=== PATIENT | female | born 1975 | race Caucasian/White ===

== ENCOUNTER → 2016-12-07 | Outpatient (CLI) | payer OTHER ==
[2016-12-07 20:15] LABS: ALT 25 U/L (9-52); AST 17 U/L (14-36); Alkaline Phosphatase 75 U/L (38-126); Anion Gap 11 mmol/L; Basophils # (A) 0.1 k/uL (0-0.2); Basophils % (A) 1 %; Blood Urea Nitrogen 13 mg/dL (7-17); CH 28.3; CHCM 31.5; Calcium 10.1 mg/dL (8.4-10.2); Carbon Dioxide 24 mmol/L (22-30); Chloride 106 mmol/L (98-107); Cholesterol 188 mg/dL (<200); Eosinophils # (A) 0.1 k/uL (0-0.7); Eosinophils % (A) 1 %; Glucose 104 mg/dL (74-99); HCT 40.9 % (34.0-46.0); HDL Cholesterol 48 mg/dL (40-60); HDW 2.63; Hypochromasia Slight; Luc # (Auto) 0.08; Luc % (Auto) 1; Lymphocytes # (A) 1.5 k/uL (1.0-4.8); Lymphocytes % (A) 25 %; MCH 28.8 pg (25.0-35.0); MCHC 31.9 g/dL (31.0-37.0); MCV 90.3 fL (80.0-100.0); Mean Platelet Volume 8.4; Monocytes # (A) 0.3 k/uL (0-1.0); Monocytes % (A) 5 %; Neutrophils # (A) 3.9 k/uL (1.3-7.7); Neutrophils % (A) 67 %; Non-African American GFR(MDRD) >60 (>60 ml/min/1.73 sqM); Potassium 4.7 mmol/L (3.5-5.1); RBC 4.52 m/uL (3.80-5.40); RDW 13.9 % (11.5-15.5); Sodium 141 mmol/L (137-145); Total Bilirubin 0.5 mg/dL (0.2-1.3); Triglycerides 240 mg/dL (<150); WBC 5.9 k/uL (3.8-10.6); WBC (Perox) 5.97
== END ==
LOC: MMGSC 11:32
PROVIDERS: ATTEND Family Medicine
DX: M79.89 Other specified soft tissue disorders (principal)
CPT/HCPCS: 36415; 80053; 80061; 83880; 84439; 84443; 85025

== ENCOUNTER 2016-12-14 11:59 | Emergency (ER) | payer OTHER ==
[2016-12-14 12:13] VITALS: RESP 18; TEMP 98.1
--- NOTE | 2016-12-14 13:46 | XR ---
EXAMINATION TYPE: XR chest 2V DATE OF EXAM: 12/14/2016 1:40 PM COMPARISON: NONE HISTORY: Back pain TECHNIQUE: Frontal and lateral views of the chest are obtained. FINDINGS: Heart and mediastinum are normal. Lungs are clear. Diaphragm is normal. Bony thorax is int act. IMPRESSION: Normal chest
--- NOTE | 2016-12-14 13:47 | XR ---
EXAMINATION TYPE: XR lumbosacral spine min 4V DATE OF EXAM: 12/14/2016 1:40 PM COMPARISON: NONE HISTORY: Back pain TECHNIQUE: 5 views FINDINGS: Vertebra have normal alignment. There is narrowing at L5-S1 disc space with spurring. There is no compression fracture. Posterior elements are intact. Sacroiliac joints are normal. IMPRESSION: Mild spondylosis at L5-S1. No fracture.
--- NOTE | 2016-12-14 14:23 | ED ---
General Adult HPI - General Chief complaint: Back Pain/Injury Stated complaint: Back/Leg Pain Right Sided Time Seen by Provider: 12/14/16 12:38 Source: patient Mode of arrival: ambulatory Limitations: no limitations - Related Data Home Medications Medication Instructions Recorded Confirmed Ibuprofen [Motrin] 400 mg PO Q6HR PRN 12/14/16 12/14/16 Loratadine [Claritin] 10 mg PO DAILY PRN 12/14/16 12/14/16 Omeprazole [PriLOSEC] 20 - 40 mg PO DAILY 12/14/16 12/14/16 Previous Rx's Medication Instructions Recorded Ibuprofen 600 mg PO Q6H #18 tablet 12/14/16 methylPREDNISolone Dose Pack 4 mg PO DIRECTED #21 package 12/14/16 [Medrol Dose Pack] Allergies Allergy/AdvReac Type Severity Reaction Status Date / Time No Known Allergies Allergy Verified 12/14/16 13:19 Review of Systems ROS Statement: Those systems with pertinent positive or pertinent negative responses have been documented in the HPI. ROS Other: All systems not noted in ROS Statement are negative. Past Medical History Past Medical History: GERD/Reflux History of Any Multi-Drug Resistant Organisms: None Reported Past Surgical History: Section Past Psychological History: Depression Smoking Status: Never smoker Past Alcohol Use History: None Reported Past Drug Use History: None Reported General Exam Limitations: no limitations Course Vital Signs 12/14/16 12:08 Temperature 98.1 F Pulse Rate 76 Respiratory 18 Rate Blood Pressure 168/83 O2 Sat by Pulse 100 Oximetry Medical Decision Making - Medical Decision Making Medical decision making chest x-ray is done and reviewed by radiologist his impression is frontal lateral views of the chest are obtained. Heart and mediastinum are normal. Lungs are clear. Diaphragm is normal. Bony thorax is intact. Impression; normal chest. As read by Dr. Munoz X-rays lumbosacral spine were done and reviewed by radiologist his impression is vertebra have normal alignment. There is narrowing at L5-S1 disc space whispering. There is no compression fracture. Posterior elements are intact. Sacroiliac joints are normal. Impression; mild spondylosis at L5-S1. No fracture. As read by Dr. Munoz Ultrasound of the right lower extremity was done. Reviewed by radiologist and his final impression is no evidence of DVT is visualized, technical limitations due to the patient's body habitus impression; grayscale, color Doppler, spectral Doppler imaging performed of the deep veins of the lower extremities. There is normal flow, compressibility, vascular waveforms bilaterally. No evidence of DVT in the right leg. As read by Dr. Munoz We did discuss the possibility of right lumbar radiculopathy. The plan at this time is for the patient to be placed on a Medrol Dosepak, and ibuprofen 6R milligrams every 6 hours. He'll be recommended patient follow-up with family physician and she may need an MRI for evaluation at this time. - Lab Data Lab Results 12/14/16 Range/Units 13:25 NT-Pro-B Natriuret Pep 302 pg/mL Disposition Clinical Impression: Lumbar radiculopathy, acute Disposition: HOME SELF-CARE Condition: Fair Instructions: Acute Low Back Pain (ED), Lumbar Radiculopathy (ED) Additional Instructions: Medications that include a Medrol Dosepak and ibuprofen as directed keep legs elevated. Suggested that to have an MRI of the lumbar spine as an outpatient. Prescriptions: Ibuprofen 600 mg PO Q6H #18 tablet methylPREDNISolone Dose Pack [Medrol Dose Pack] 4 mg PO DIRECTED #21 package Referrals: Kaity Segura MD [Primary Care Provider] - 1-2 days Time of Disposition: 14:44
--- NOTE | 2016-12-14 14:34 | US ---
EXAMINATION TYPE: US venous doppler duplex LE RT DATE OF EXAM: 12/14/2016 2:10 PM COMPARISON: NONE CLINICAL HISTORY: Pain. Pain/edema right leg SIDE PERFORMED: Right TECHNIQUE: The lower extremity deep venous system is examined utilizing real time linear array sonog odin with graded compression, doppler sonography and color-flow sonography. VESSELS IMAGED: External Iliac Vein (EIV) Common Femoral Vein Deep Femoral Vein Greater Saphenous Vein * Femoral Vein Popliteal Vein Small Saphenous Vein * Proximal Calf Veins (* superficial vessels) Right Leg: NO evidence of DVT as visualized, technical limitations due to patient's body habitus IMPRESSION: Grayscale, color doppler, spectral doppler imaging performed of the deep veins of the lo wer extremities. There is normal flow, compressibility, vascular waveforms bilaterally. No evidence of deep venous thrombosis in the right leg.
[2016-12-14 14:58] VITALS: BP 159/92; PULSE 88
== END 2016-12-14 14:58 | disposition home or self-care (01) ==
LOC: EC 11:59
DX: M54.16 Radiculopathy, lumbar region (principal); K21.9 Gastro-esophageal reflux disease without esophagitis; Z79.899 Other long term (current) drug therapy
CPT/HCPCS: 36415; 71020; 72110; 83880; 99284

== ENCOUNTER → 2017-03-10 | Outpatient (CLI) | payer OTHER ==
[2017-03-10 18:55] LABS: Basophils % (A) 1 %; CH 28.4; CHCM 32.6; Eosinophils # (A) 0.1 k/uL (0-0.7); Eosinophils % (A) 2 %; HCT 39.6 % (34.0-46.0); HDW 2.62; HGB 13.3 gm/dL (11.4-16.0); Luc # (Auto) 0.11; Luc % (Auto) 2; Lymphocytes # (A) 1.7 k/uL (1.0-4.8); Lymphocytes % (A) 26 %; MCH 29.3 pg (25.0-35.0); MCHC 33.6 g/dL (31.0-37.0); MCV 87.4 fL (80.0-100.0); Mean Platelet Volume 7.9; Monocytes # (A) 0.3 k/uL (0-1.0); Monocytes % (A) 5 %; Neutrophils # (A) 4.2 k/uL (1.3-7.7); Neutrophils % (A) 65 %; RBC 4.53 m/uL (3.80-5.40); RDW 14.2 % (11.5-15.5); WBC 6.5 k/uL (3.8-10.6); WBC (Perox) 6.86
[2017-03-10 19:06] LABS: ALT 35 U/L (9-52); AST 20 U/L (14-36); Alkaline Phosphatase 87 U/L (38-126); Anion Gap 9 mmol/L; Blood Urea Nitrogen 12 mg/dL (7-17); Carbon Dioxide 25 mmol/L (22-30); Chloride 105 mmol/L (98-107); Glucose 93 mg/dL (74-99); Non-African American GFR(MDRD) >60 (>60 ml/min/1.73 sqM); Potassium 4.6 mmol/L (3.5-5.1); Sodium 139 mmol/L (137-145); Total Bilirubin 0.5 mg/dL (0.2-1.3)
== END | disposition home or self-care (01) ==
LOC: MMGSC 15:04
PROVIDERS: ATTEND Family Medicine
DX: R68.83 Chills (without fever) (principal); R42 Dizziness and giddiness
CPT/HCPCS: 36415; 80053; 84443; 85025

== ENCOUNTER 2017-03-15 14:13 | Emergency (ER) | payer OTHER ==
[2017-03-15] MEDS ORDERED: SODIUM CHLORIDE 0.9% 1,000 ML IV STA ×2 (14:42)
--- NOTE | 2017-03-15 14:45 | ED ---
General Adult HPI - General Chief complaint: Arrhythmia/Palpitations Stated complaint: Heart Palputations Time Seen by Provider: 03/15/17 14:20 Source: patient, family, RN notes reviewed, old records reviewed Mode of arrival: wheelchair Limitations: no limitations - History of Present Illness Initial comments: This is a 41-year-old female ER for evaluation. This patient presents for evaluation regarding palpitations, palpitations and vertigo. Multiple different complaints. Patient states she hasn't felt good since Wednesday and symptoms have been episodic but persistent, not worse or better. No modifying factors for symptoms. The room does spin around with head movements. The patient also complains her heart rate seems to be spitting up slowing down skipping a beat, 7 stable at work. Denies shortness of breath fevers no change in medications - Related Data Home Medications Medication Instructions Recorded Confirmed Omeprazole [PriLOSEC] 20 mg PO DAILY 12/14/16 03/15/17 Meclizine HCl 25 mg PO DAILY PRN 03/15/17 03/15/17 Allergies Allergy/AdvReac Type Severity Reaction Status Date / Time No Known Allergies Allergy Verified 03/15/17 15:11 Review of Systems ROS Statement: Those systems with pertinent positive or pertinent negative responses have been documented in the HPI. ROS Other: All systems not noted in ROS Statement are negative. Past Medical History Past Medical History: GERD/Reflux History of Any Multi-Drug Resistant Organisms: None Reported Past Surgical History: Section Past Psychological History: Depression Smoking Status: Never smoker Past Alcohol Use History: None Reported Past Drug Use History: None Reported General Exam Limitations: no limitations General appearance: alert, in no apparent distress Head exam: Present: atraumatic, normocephalic, normal inspection Eye exam: Present: normal appearance, PERRL, EOMI. Absent: scleral icterus, conjunctival injection, periorbital swelling ENT exam: Present: normal exam, mucous membranes moist Neck exam: Present: normal inspection. Absent: tenderness, meningismus, lymphadenopathy Respiratory exam: Present: normal lung sounds bilaterally. Absent: respiratory distress, wheezes, rales, rhonchi, stridor Cardiovascular Exam: Present: regular rate, normal rhythm, normal heart sounds. Absent: systolic murmur, diastolic murmur, rubs, gallop, clicks GI/Abdominal exam: Present: soft, normal bowel sounds. Absent: distended, tenderness, guarding, rebound, rigid Extremities exam: Present: normal inspection, full ROM, normal capillary refill. Absent: tenderness, pedal edema, joint swelling, calf tenderness Back exam: Present: normal inspection Neurological exam: Present: alert, oriented X3, CN II-XII intact Psychiatric exam: Present: normal affect, normal mood Skin exam: Present: warm, dry, intact, normal color. Absent: rash Course Vital Signs 03/15/17 14:32 Temperature 96.9 F L Pulse Rate 74 Respiratory 18 Rate Blood Pressure 157/83 O2 Sat by Pulse 100 Oximetry - Reevaluation(s) Reevaluation #1: 03/15/17 16:15 The patient still feels similar to before EKG Findings - EKG Comments: EKG Findings:: EKG shows normal sinus a rate of 81, CA 166, QRS 78, QTC 466 Medical Decision Making - Medical Decision Making 41 female to the ER earlier with multiple nonspecific complaints, overt vertigo , not feeling well, palpitations. Lab work Normal EKG normal patient will be discharged home - Lab Data Result diagrams: 03/15/17 15:00 03/15/17 15:00 Lab Results 03/15/17 03/15/17 03/15/17 Range/Units 15:00 15:00 15:00 WBC 7.2 (3.8-10.6) k/uL RBC 4.61 (3.80-5.40) m/uL Hgb 13.1 (11.4-16.0) gm/dL Hct 40.3 (34.0-46.0) % MCV 87.4 (80.0-100.0) fL MCH 28.4 (25.0-35.0) pg MCHC 32.5 (31.0-37.0) g/dL RDW 14.6 (11.5-15.5) % Plt Count 279 (150-450) k/uL Neutrophils % 60 % Lymphocytes % 29 % Monocytes % 5 % Eosinophils % 2 % Basophils % 1 % Neutrophils # 4.4 (1.3-7.7) k/uL Lymphocytes # 2.1 (1.0-4.8) k/uL Monocytes # 0.4 (0-1.0) k/uL Eosinophils # 0.1 (0-0.7) k/uL Basophils # 0.1 (0-0.2) k/uL PT (9.0-12.0) sec INR (<1.2) APTT (22.0-30.0) sec Sodium 140 (137-145) mmol/L Potassium 4.7 (3.5-5.1) mmol/L Chloride 105 (98-107) mmol/L Carbon Dioxide 24 (22-30) mmol/L Anion Gap 11 mmol/L BUN 14 (7-17) mg/dL Creatinine 0.80 (0.52-1.04) mg/dL Est GFR (MDRD) Af Amer >60 (>60 ml/min/1.73 sqM) Est GFR (MDRD) Non-Af >60 (>60 ml/min/1.73 sqM) Glucose 97 (74-99) mg/dL Calcium 10.1 (8.4-10.2) mg/dL Phosphorus 3.8 (2.5-4.5) mg/dL Magnesium 1.8 (1.6-2.3) mg/dL Total Bilirubin 0.6 (0.2-1.3) mg/dL AST 22 (14-36) U/L ALT 38 (9-52) U/L Alkaline Phosphatase 99 (38-126) U/L Total Creatine Kinase 47 (30-135) U/L CK-MB (CK-2) 0.4 (0.0-2.4) ng/mL CK-MB (CK-2) Rel Index 0.9 Troponin I <0.012 (0.000-0.034) ng/mL Total Protein 7.3 (6.3-8.2) g/dL Albumin 4.5 (3.5-5.0) g/dL TSH 2.520 (0.465-4.680) mIU/L Urine Color Urine Appearance (Clear) Urine pH (5.0-8.0) Ur Specific [place] (1.001-1.035) Urine Protein (Negative) Urine Glucose (UA) (Negative) Urine Ketones (Negative) Urine Blood (Negative) Urine Nitrite (Negative) Urine Bilirubin (Negative) Urine Urobilinogen (<2.0) mg/dL Ur Leukocyte Esterase (Negative) 03/15/17 03/15/17 Range/Units 15:00 15:35 WBC (3.8-10.6) k/uL RBC (3.80-5.40) m/uL Hgb (11.4-16.0) gm/dL Hct (34.0-46.0) % MCV (80.0-100.0) fL MCH (25.0-35.0) pg MCHC (31.0-37.0) g/dL RDW (11.5-15.5) % Plt Count (150-450) k/uL Neutrophils % % Lymphocytes % % Monocytes % % Eosinophils % % Basophils % % Neutrophils # (1.3-7.7) k/uL Lymphocytes # (1.0-4.8) k/uL Monocytes # (0-1.0) k/uL Eosinophils # (0-0.7) k/uL Basophils # (0-0.2) k/uL PT 10.8 (9.0-12.0) sec INR 1.1 (<1.2) APTT 25.1 (22.0-30.0) sec Sodium (137-145) mmol/L Potassium (3.5-5.1) mmol/L Chloride (98-107) mmol/L Carbon Dioxide (22-30) mmol/L Anion Gap mmol/L BUN (7-17) mg/dL Creatinine (0.52-1.04) mg/dL Est GFR (MDRD) Af Amer (>60 ml/min/1.73 sqM) Est GFR (MDRD) Non-Af (>60 ml/min/1.73 sqM) Glucose (74-99) mg/dL Calcium (8.4-10.2) mg/dL Phosphorus (2.5-4.5) mg/dL Magnesium (1.6-2.3) mg/dL Total Bilirubin (0.2-1.3) mg/dL AST (14-36) U/L ALT (9-52) U/L Alkaline Phosphatase (38-126) U/L Total Creatine Kinase (30-135) U/L CK-MB (CK-2) (0.0-2.4) ng/mL CK-MB (CK-2) Rel Index Troponin I (0.000-0.034) ng/mL Total Protein (6.3-8.2) g/dL Albumin (3.5-5.0) g/dL TSH (0.465-4.680) mIU/L Urine Color Light Yellow Urine Appearance Clear (Clear) Urine pH 5.0 (5.0-8.0) Ur Specific [place] 1.008 (1.001-1.035) Urine Protein Negative (Negative) Urine Glucose (UA) Negative (Negative) Urine Ketones Negative (Negative) Urine Blood Negative (Negative) Urine Nitrite Negative (Negative) Urine Bilirubin Negative (Negative) Urine Urobilinogen <2.0 (<2.0) mg/dL Ur Leukocyte Esterase Negative (Negative) - Radiology Data Radiology results: report reviewed (C chest x-ray is negative for acute disease) , image reviewed Disposition Clinical Impression: Vertigo, Anxiety, Palpitations Disposition: HOME SELF-CARE Condition: Good Instructions: Palpitations (ED), Vertigo (ED) Referrals: Kaity Segura MD [Primary Care Provider] - 1-2 days
[2017-03-15 15:18] LABS: Basophils # (A) 0.1 k/uL (0-0.2); Basophils % (A) 1 %; CH 29.5; CHCM 33.9; Eosinophils # (A) 0.1 k/uL (0-0.7); Eosinophils % (A) 2 %; HCT 40.3 % (34.0-46.0); HDW 2.61; HGB 13.1 gm/dL (11.4-16.0); Luc % (Auto) 3; Lymphocytes # (A) 2.1 k/uL (1.0-4.8); Lymphocytes % (A) 29 %; MCH 28.4 pg (25.0-35.0); MCHC 32.5 g/dL (31.0-37.0); MCV 87.4 fL (80.0-100.0); Monocytes # (A) 0.4 k/uL (0-1.0); Monocytes % (A) 5 %; Neutrophils # (A) 4.4 k/uL (1.3-7.7); Neutrophils % (A) 60 %; RBC 4.61 m/uL (3.80-5.40); RDW 14.6 % (11.5-15.5); WBC 7.2 k/uL (3.8-10.6)
--- NOTE | 2017-03-15 15:20 | XR ---
EXAMINATION TYPE: XR chest 2V DATE OF EXAM: 03/15/2017 COMPARISON: 12/14/2016 HISTORY: Chest pain and palpitations TECHNIQUE: Frontal and lateral views of the chest are obtained. FINDINGS: There is no focal air space opacity, pleural effusion, or pneumothorax seen. The cardiac silhouette size is within normal limits. The osseous structures are intact. Minimal degenerative ch anges of the thoracic spine are noted. IMPRESSION: No acute cardiopulmonary process, unchanged from the prior.
[2017-03-15 15:27] LABS: INR 1.1 (<1.2); Partial Thromboplastin Time 25.1 sec (22.0-30.0); Prothrombin Time 10.8 sec (9.0-12.0)
[2017-03-15 15:31] LABS: ALT 38 U/L (9-52); AST 22 U/L (14-36); Alkaline Phosphatase 99 U/L (38-126); Anion Gap 11 mmol/L; Blood Urea Nitrogen 14 mg/dL (7-17); Calcium 10.1 mg/dL (8.4-10.2); Carbon Dioxide 24 mmol/L (22-30); Chloride 105 mmol/L (98-107); Glucose 97 mg/dL (74-99); Magnesium 1.8 mg/dL (1.6-2.3); Non-African American GFR(MDRD) >60 (>60 ml/min/1.73 sqM); Phosphorous 3.8 mg/dL (2.5-4.5); Potassium 4.7 mmol/L (3.5-5.1); Sodium 140 mmol/L (137-145); Total Bilirubin 0.6 mg/dL (0.2-1.3); Total Protein 7.3 g/dL (6.3-8.2)
[2017-03-15 15:44] LABS: Creatine Kinase 47 U/L (30-135)
[2017-03-15 15:51] LABS: Appearance,Urine Clear (Clear); Bilirubin,Urine Negative (Negative); Glucose,Urine (UA) Negative (Negative); Ketones,Urine Negative (Negative); Leukocyte Esterase,Urine Negative (Negative); Nitrite,Urine Negative (Negative); Protein,Urine Negative (Negative); Specific Gravity,Urine 1.008 (1.001-1.035); UA Billing (MACRO vs. MICRO) CHEM; Urobilinogen,Urine <2.0 mg/dL (<2.0)
[2017-03-15 15:57] LABS: Creatine Kinase MB 0.4 ng/mL (0.0-2.4); Troponin I <0.012 ng/mL (0.000-0.034)
[2017-03-15 16:27] VITALS: PULSE 80
[2017-03-15 17:08] VITALS: BP 119/64; RESP 17; TEMP 97.7
== END 2017-03-15 17:05 | disposition home or self-care (01) ==
LOC: EC 14:13
DX: R00.2 Palpitations (principal); R42 Dizziness and giddiness; F41.9 Anxiety disorder, unspecified; K21.9 Gastro-esophageal reflux disease without esophagitis
CPT/HCPCS: 36415; 71020; 80053; 81003; 82550; 82553; 83735; 84100; 84443; 84484; 85025; 85610; 85730; 87086; 93005; 96360; 96361; 99285

== ENCOUNTER → 2017-07-13 | Outpatient (CLI) | payer OTHER ==
--- NOTE | 2017-07-13 09:08 | MR ---
EXAMINATION TYPE: MR brain wo con DATE OF EXAM: 07/13/2017 COMPARISON: NONE HISTORY: Hearing loss and memory loss. TECHNIQUE: Multiplanar, multisequence images of the brain and brainstem is performed without intravenous contras t. FINDINGS: Diffusion weighted images demonstrate no evidence of a recent infarct or other diffusion ab normality. There is no extra-axial fluid collection. Three punctate foci of T2/FLAIR hyperintensity are seen within the right temporal lobe measuring 4 mm on axial FLAIR fat-sat image 16, periventricul ar white matter of the right hemisphere on image 20 measuring 3 mm, and mary radiata of the left he misphere on image 21 measuring 2 mm. The ventricular system and cisternal spaces are normal in size a nd appearance. The brain volume is age appropriate. Midline structures demonstrate normal morphology. The craniocervical junction appears within normal limits. There is a 1.0 cm right maxillary nondependent mucosal retention cyst and minimal ethmoidal m ucosal thickening. The remaining visualized sinuses are clear and the globes are intact. IMPRESSION: 1. No evidence of acute intracranial hemorrhage, acute infarct midline shift or mass effect. 2. Few foci of nonspecific white matter change. This are most commonly on the basis of microangiopath y although they can be seen in vasculitides, demyelinating disease, or migraines. 3. Mild ethmoid paranasal sinus disease and 1 cm right maxillary mucosal retention cyst.
== END | disposition home or self-care (01) ==
LOC: RADMRIMAIN 07:08
PROVIDERS: ATTEND Family Medicine
DX: I73.9 Peripheral vascular disease, unspecified (principal); R90.82 White matter disease, unspecified; H91.93 Unspecified hearing loss, bilateral
CPT/HCPCS: 70551

== ENCOUNTER → 2018-02-16 | Outpatient (CLI) | payer OTHER ==
--- NOTE | 2018-02-16 12:09 | US ---
EXAMINATION TYPE: US abdomen complete DATE OF EXAM: 02/16/2018 COMPARISON: NONE CLINICAL HISTORY: R10.11 Abd pain. Right abdominal pain, diarrhea per patient EXAM MEASUREMENTS: Liver Length: 12.6 cm Gallbladder Wall: 0.2 cm CBD: 0.2 cm Spleen: 9.8 cm Right Kidney: 10.1 x 5.0 x 4.1 cm Left Kidney: 10.5 x 5.8 x 4.7 cm Pancreas: Unremarkable Liver: wnl Gallbladder: wnl Evidence for sonographic Randolph's sign: no CBD: wnl Spleen: wnl Right Kidney: No hydronephrosis or masses seen Left Kidney: No hydronephrosis or masses seen Upper IVC: wnl Abd Aorta: wnl IMPRESSION: No sonographic evidence of cholelithiasis or acute cholecystitis. Unremarkable abdominal ultrasound.
--- NOTE | 2018-02-16 15:32 | MM ---
Reason for exam: clinical finding. Baseline mammogram. History: Took hormonal contraceptives beginning at age 23. Physical Findings: Nurse did not find any significant physical abnormalities on exam. MG Diagnostic Mammo w CAD AUREA Bilateral CC and MLO view(s) were taken. The breast tissue is heterogeneously dense. This may lower the sensitivity of mammography. No suspicious abnormality. No significant new findings when compared with previous films. These results were verbally communicated with the patient and result sheet given to the patient on 02/16/18. ASSESSMENT: Negative, BI-RAD 1 RECOMMENDATION: Routine screening mammogram of both breasts in 1 year.
--- NOTE | 2018-02-16 15:35 | USB ---
Reason for exam: clinical finding. History: Took hormonal contraceptives beginning at age 23. US Breast RT Right complete breast ultrasound includes all four quadrants, the retroareolar region and axilla. Finding demonstrates no cystic or solid lesion seen. Multiple morphologically normal lymph nodes however there is a solitary hyperechoic and minimally enlarged lymph node in the righty axilla, likely inflammatory. Follow up ultrasound after treatment recommended to ensure decrease in size. These results were verbally communicated with the patient and result sheet given to the patient on 02/16/18. ASSESSMENT: Probably benign, BI-RAD 3 RECOMMENDATION: Ultrasound of the right breast in 1 month. (axilla, 3-6 weeks after treatment)
== END | disposition home or self-care (01) ==
LOC: RADMAMWWP 08:48
PROVIDERS: ATTEND Family Medicine
DX: N64.4 Mastodynia (principal); R10.11 Right upper quadrant pain
CPT/HCPCS: 76700; 77066

== ENCOUNTER → 2018-03-22 | Outpatient (CLI) | payer OTHER ==
--- NOTE | 2018-03-22 15:01 | US ---
EXAMINATION TYPE: US axilla RT DATE OF EXAM: 03/22/2018 COMPARISON: Breast US 02/16/2018 CLINICAL HISTORY: R59.0 LOCALIZED ENLARGED LYMPH NODES. Followup right axillary nodes after antibioti cs. There is a 1.5 x 0.7 x 1.6 cm right axillary lymph node present. A larger 2.7 x 1.0 x 2.0 cm lymph no de is in the right axillary region. Additional smaller lymph nodes are present. Morphology appears si milar to previous exam. Echogenicity is more normal appearance on the current exam and less hyperecho ic nodules as previous. Multiple right axillary nodes seen mid medial axilla and medial axilla with largest measured #2 = 2.7 x 2.0 x 1.0cm. IMPRESSION: 1. Persistent right axillary adenopathy.
== END | disposition home or self-care (01) ==
LOC: RADUSWWP 14:06
PROVIDERS: ATTEND Family Medicine
DX: R59.0 Localized enlarged lymph nodes (principal)

== ENCOUNTER → 2019-03-28 | Outpatient (CLI) | payer OTHER ==
--- NOTE | 2019-03-28 10:35 | NM ---
EXAMINATION TYPE: NM stress cardiolite complete DATE OF EXAM: 03/28/2019 COMPARISON: NONE HISTORY: Family history of heart attack in mom with chest pain and palpitations. TECHNIQUE: After the intravenous administration of 10.44 mCi Tc 99m Sestamibi - Rest images obtained 50 minutes post injection. The patient exercised using a INGRID protocol and 1 minute prior to peak exercise was injected with 27 mCi Tc 99m Sestamibi - Stress images obtained 30 minutes post injectio n. FINDINGS: Targeted heart rate was achieved during performance of the study. Review of stress and rest SPECT saleem ges demonstrates no distinct perfusion abnormality. Gated analysis shows normal wall motion with an estimated left ventricular ejection fraction of 71 %. IMPRESSION: No scintigraphic evidence for reversible ischemia
--- NOTE | 2019-03-28 12:20 | EST ---
EXERCISE STRESS AGE: 43 SEX: F HT: 5'4" WT: 245 PROTOCOL: Cardiolite [employer] Stress Test STAGE: 3 DURATION OF EXERCISE: 7:15 HEART RATE REST: 77 BLOOD PRESSURE REST: 121/87 MAXIMUM HEART RATE ACHIEVED: 160 MAXIMUM BLOOD PRESSURE: 156/90 85% MPHR: 152 100% MPHR: 179 METS: 8.7 INDICATIONS: Chest pain. CLINICAL INFORMATION: STRESS DATA: Heart rate 77, pressure is 121/87 mmHg. Baseline EKG showed sinus mechanism. The patient exercised on the treadmill according to [employer] protocol for a total of 7 minutes and 15 seconds and achieved 8.7 METS. Max heart rate was 160, which is about 89% of maximum predicted heart rate. Maximum blood pressure was 156/90 mmHg. Clinically, the patient did not have any symptoms and the EKG did not show any significant ST or T-wave abnormalities concerning for ischemia. CONCLUSION: 1. Good exercise tolerance. 2. Normal EKG in response to exercise. 3. Please follow up on the Cardiolite portion on separate report from Radiology Department. MMODL / IJN: [id number] /
== END | disposition home or self-care (01) ==
LOC: RADNMMAIN 07:40
PROVIDERS: ATTEND Family Medicine
DX: R07.9 Chest pain, unspecified (principal)
CPT/HCPCS: 93017; 78452; A9500

== ENCOUNTER → 2019-07-24 | Outpatient (CLI) | payer OTHER ==
--- NOTE | 2019-07-24 10:48 | USB ---
Reason for exam: clinical finding. History: Took hormonal contraceptives beginning at age 23. Physical Findings: Nurse Summary: Patient complains of left breast lump, pain x 1 month, 1cm lump left breast 1 o'clock (nurse kacey). US Breast LT Technologist: Symone Hua Left complete breast ultrasound includes all four quadrants, the retroareolar region and axilla. Finding demonstrates a 1.4 x 1.3 x 0.7cm oval, lesion at 12:30 BB, possible lipoma versus fibroglandular tissue. These results were verbally communicated with the patient and result sheet given to the patient on 07/24/19. ASSESSMENT: Benign, BI-RAD 2 RECOMMENDATION: Routine screening mammogram of both breasts. Patient was due for annual screening mammogram in February 2019.
== END | disposition home or self-care (01) ==
LOC: RADUSWWP 08:45
PROVIDERS: ATTEND Family Medicine
DX: N64.4 Mastodynia (principal)

== ENCOUNTER 2021-08-06 12:35 | Emergency (ER) | payer OTHER ==
[2021-08-06 12:43] VITALS: RESP 18
[2021-08-06] MEDS ORDERED: SODIUM CHLORIDE 0.9% 1,000 ML IV STA (14:05)
[2021-08-06 14:42] LABS: Basophils % (A) 0 %; Eosinophils # (A) 0.1 k/uL (0-0.7); Eosinophils % (A) 1 %; HCT 41.9 % (34.0-46.0); HGB 13.7 gm/dL (11.4-16.0); Lymphocytes # (A) 1.2 k/uL (1.0-4.8); Lymphocytes % (A) 14 %; MCH 28.9 pg (25.0-35.0); MCHC 32.7 g/dL (31.0-37.0); MCV 88.3 fL (80.0-100.0); Mean Platelet Volume 8.1; Monocytes # (A) 0.4 k/uL (0-1.0); Monocytes % (A) 4 %; Neutrophils % (A) 80 %; Platelet Count 306 k/uL (150-450); RBC 4.74 m/uL (3.80-5.40); RDW 13.4 % (11.5-15.5); WBC 8.7 k/uL (3.8-10.6)
[2021-08-06 14:51] LABS: Partial Thromboplastin Time 23.9 sec (22.0-30.0); Prothrombin Time 10.3 sec (9.0-12.0)
[2021-08-06 14:52] LABS: ALT 20 U/L (4-34); AST 19 U/L (14-36); African American GFR (CKD) >90 (>60 ml/min/1.73 sqM); Albumin 4.5 g/dL (3.5-5.0); Alkaline Phosphatase 97 U/L (38-126); Anion Gap 12 mmol/L; Blood Urea Nitrogen 11 mg/dL (7-17); Calcium 10.2 mg/dL (8.4-10.2); Carbon Dioxide 23 mmol/L (22-30); Chloride 105 mmol/L (98-107); Glucose 107 mg/dL (74-99); Non-African American GFR(CKD) 89 (>60 ml/min/1.73 sqM); Potassium 4.3 mmol/L (3.5-5.1); Sodium 140 mmol/L (137-145); Total Bilirubin 0.6 mg/dL (0.2-1.3); Total Protein 7.5 g/dL (6.3-8.2)
--- NOTE | 2021-08-06 15:12 | XR ---
EXAMINATION TYPE: XR chest 2V DATE OF EXAM: 08/06/2021 COMPARISON: Chest x-ray 03/15/2017 HISTORY: Syncope, Covid positive TECHNIQUE: Frontal and lateral views of the chest are obtained. FINDINGS: Lung volumes are low. There is no focal air space opacity, pleural effusion, or pneumothora x seen. The cardiac silhouette size is within normal limits. The osseous structures are intact, th ere is thoracic spondylosis. IMPRESSION: No acute cardiopulmonary process.
--- NOTE | 2021-08-06 16:31 | ED ---
General Adult HPI - General Chief complaint: Upper Respiratory Infection Stated complaint: Covid+, elevated HR Time Seen by Provider: 08/06/21 13:06 Source: patient Mode of arrival: ambulatory Limitations: no limitations - History of Present Illness Initial comments: 46-year-old female with past history of prediabetes who presents to the emergency department with presyncope. Reports that she tested positive for Covid 3 days ago on a home test. She has had some nasal congestion for the past 2 weeks. Reports that today she had more fatigue and upon standing felt like she was going to pass out. Denies any chest pain or shortness of breath. Does admit to significant nasal congestion. She has been able to eat and drink without difficulty. No diarrhea. Denies any abdominal pain. No concern for . No history of heart problems pulmonary issues. Denies sensation of being off balance or vertiginous symptoms. No other alleviating, precipitating or modifying factors - Related Data Home Medications Medication Instructions Recorded Confirmed metFORMIN HCL [Glucophage] 500 mg PO BID 08/06/21 08/06/21 Previous Rx's Medication Instructions Recorded Meclizine [Antivert] 25 mg PO TID PRN #20 tab 08/06/21 Allergies Allergy/AdvReac Type Severity Reaction Status Date / Time No Known Allergies Allergy Verified 08/06/21 13:45 Review of Systems ROS Statement: Those systems with pertinent positive or pertinent negative responses have been documented in the HPI. ROS Other: All systems not noted in ROS Statement are negative. Past Medical History Past Medical History: GERD/Reflux Additional Past Medical History / Comment(s): covid + Aug 03 2021 History of Any Multi-Drug Resistant Organisms: None Reported Past Surgical History: Section Past Psychological History: Depression Smoking Status: Never smoker Past Alcohol Use History: None Reported Past Drug Use History: None Reported General Exam Limitations: no limitations General appearance: alert, in no apparent distress Head exam: Present: atraumatic, normocephalic, normal inspection Eye exam: Present: normal appearance, PERRL, EOMI. Absent: scleral icterus, co njunctival injection, periorbital swelling ENT exam: Present: normal exam, mucous membranes moist Neck exam: Present: normal inspection. Absent: tenderness, meningismus, lymphadenopathy Respiratory exam: Present: normal lung sounds bilaterally. Absent: respiratory distress, wheezes, rales, rhonchi, stridor Cardiovascular Exam: Present: regular rate, normal rhythm, normal heart sounds. Absent: systolic murmur, diastolic murmur, rubs, gallop, clicks GI/Abdominal exam: Present: soft, normal bowel sounds. Absent: distended, tenderness, guarding, rebound, rigid Extremities exam: Present: normal inspection, full ROM, normal capillary refill. Absent: tenderness, pedal edema, joint swelling, calf tenderness Back exam: Present: normal inspection Neurological exam: Present: alert, oriented X3, CN II-XII intact Psychiatric exam: Present: normal affect, normal mood Skin exam: Present: warm, dry, intact, normal color. Absent: rash Course Vital Signs 08/06/21 08/06/21 08/06/21 12:37 16:40 16:43 Temperature 99.1 F Pulse Rate 95 Pulse Rate [ 92 Sitting Pulse Oximetery] Pulse Rate [ Standing Pulse Oximetery] Pulse Rate [ 94 Supine Pulse Oximetery] Respiratory 18 18 18 Rate Blood Pressure 172/89 Blood Pressure 130/88 150/89 [Right Arm] O2 Sat by Pulse 100 100 100 Oximetry 08/06/21 08/06/21 16:44 18:35 Temperature 98.7 F Pulse Rate 87 Pulse Rate [ Sitting Pulse Oximetery] Pulse Rate [ 109 H Standing Pulse Oximetery] Pulse Rate [ Supine Pulse Oximetery] Respiratory 18 18 Rate Blood Pressure 134/84 Blood Pressure 137/82 [Right Arm] O2 Sat by Pulse 100 100 Oximetry EKG Findings - EKG Comments: EKG Findings:: KD demonstrates a sinus tachycardia with a ventricular rate of 104. RI interval 144. QRS 88. QTC of 452. No acute ST segment elevations or depressions concerning for ischemic changes Medical Decision Making - Medical Decision Making Upon arrival patient is placed into [place] [id number]. Thorough history and physical exam is performed. IV is established. Patient given a liter bolus of normal saline. Laboratory studies are conducted. Chest x-rays performed. Patient is negative for orthostatic hypotension. She is reevaluated and does start report some vertiginous symptoms. She is given a dose of meclizine. Patient admits to improvement in her symptoms. I discussed diagnosis, treatment options. Patient will be discharged at this time and given a prescription for meclizine. She is outside of the window for antibody infusion. Patient is to follow-up with her doctor to 4 days. Return for any new or worsening symptoms. Patient agreed to the treatment plan and was discharged home in stable condition - Lab Data Result diagrams: 08/06/21 14:26 08/06/21 14:26 Lab Results 08/06/21 08/06/21 08/06/21 Range/Units 14:26 14:26 14:26 WBC 8.7 (3.8-10.6) k/uL RBC 4.74 (3.80-5.40) m/uL Hgb 13.7 (11.4-16.0) gm/dL Hct 41.9 (34.0-46.0) % MCV 88.3 (80.0-100.0) fL MCH 28.9 (25.0-35.0) pg MCHC 32.7 (31.0-37.0) g/dL RDW 13.4 (11.5-15.5) % Plt Count 306 (150-450) k/uL MPV 8.1 Neutrophils % 80 % Lymphocytes % 14 % Monocytes % 4 % Eosinophils % 1 % Basophils % 0 % Neutrophils # 7.0 (1.3-7.7) k/uL Lymphocytes # 1.2 (1.0-4.8) k/uL Monocytes # 0.4 (0-1.0) k/uL Eosinophils # 0.1 (0-0.7) k/uL Basophils # 0.0 (0-0.2) k/uL PT 10.3 (9.0-12.0) sec INR 1.0 (<1.2) APTT 23.9 (22.0-30.0) sec Sodium 140 (137-145) mmol/L Potassium 4.3 (3.5-5.1) mmol/L Chloride 105 (98-107) mmol/L Carbon Dioxide 23 (22-30) mmol/L Anion Gap 12 mmol/L BUN 11 (7-17) mg/dL Creatinine 0.81 (0.52-1.04) mg/dL Est GFR (CKD-EPI)AfAm >90 (>60 ml/min/1.73 sqM) Est GFR (CKD-EPI)NonAf 89 (>60 ml/min/1.73 sqM) Glucose 107 H (74-99) mg/dL Calcium 10.2 (8.4-10.2) mg/dL Total Bilirubin 0.6 (0.2-1.3) mg/dL AST 19 (14-36) U/L ALT 20 (4-34) U/L Alkaline Phosphatase 97 (38-126) U/L Troponin I (0.000-0.034) ng/mL Total Protein 7.5 (6.3-8.2) g/dL Albumin 4.5 (3.5-5.0) g/dL 08/06/21 Range/Units 14:26 WBC (3.8-10.6) k/uL RBC (3.80-5.40) m/uL Hgb (11.4-16.0) gm/dL Hct (34.0-46.0) % MCV (80.0-100.0) fL MCH (25.0-35.0) pg MCHC (31.0-37.0) g/dL RDW (11.5-15.5) % Plt Count (150-450) k/uL MPV Neutrophils % % Lymphocytes % % Monocytes % % Eosinophils % % Basophils % % Neutrophils # (1.3-7.7) k/uL Lymphocytes # (1.0-4.8) k/uL Monocytes # (0-1.0) k/uL Eosinophils # (0-0.7) k/uL Basophils # (0-0.2) k/uL PT (9.0-12.0) sec INR (<1.2) APTT (22.0-30.0) sec Sodium (137-145) mmol/L Potassium (3.5-5.1) mmol/L Chloride (98-107) mmol/L Carbon Dioxide (22-30) mmol/L Anion Gap mmol/L BUN (7-17) mg/dL Creatinine (0.52-1.04) mg/dL Est GFR (CKD-EPI)AfAm (>60 ml/min/1.73 sqM) Est GFR (CKD-EPI)NonAf (>60 ml/min/1.73 sqM) Glucose (74-99) mg/dL Calcium (8.4-10.2) mg/dL Total Bilirubin (0.2-1.3) mg/dL AST (14-36) U/L ALT (4-34) U/L Alkaline Phosphatase (38-126) U/L Troponin I <0.012 (0.000-0.034) ng/mL Total Protein (6.3-8.2) g/dL Albumin (3.5-5.0) g/dL Disposition Clinical Impression: Vertigo, COVID-19, Tachycardia Disposition: HOME SELF-CARE Condition: Stable Instructions (If sedation given, give patient instructions): Coronavirus Disease 2019 (COVID-19), Vertigo (ED) Additional Instructions: Please follow-up with your primary care doctor in 2-4 days. Return to the emergency room for any new or worsening symptoms Prescriptions: Meclizine [Antivert] 25 mg PO TID PRN #20 tab PRN Reason: Vertigo Is patient prescribed a controlled substance at d/c from ED?: No Referrals: Mari Antunez MD [Primary Care Provider] - 1-2 days Time of Disposition: 18:03
[2021-08-06] MEDS ORDERED: MECLIZINE 12.5 MG TAB PO STA (16:55)
[2021-08-06 18:55] VITALS: BP 134/84; PULSE 87; TEMP 98.7
== END 2021-08-06 18:35 | disposition home or self-care (01) ==
LOC: EC 12:35
DX: U07.1 COVID-19 (principal); R00.0 Tachycardia, unspecified; R42 Dizziness and giddiness
CPT/HCPCS: 36415; 71046; 80053; 84484; 85025; 85610; 85730; 93005; 96360; 99285

== ENCOUNTER → 2021-12-31 | Outpatient (CLI) | payer OTHER ==
--- NOTE | 2021-12-31 11:25 | MM ---
Reason for Exam: Clinical finding. Last mammogram was performed 3 year(s) and 10 month(s) ago. Indicated Problems: Pain of both sides (Global) for 2 Year(s). Patient History: Menarche at age 14. First Full-Term at age 27. Patient has history of breast feeding. Hormonal Contraceptives, from age 23 until age 25. Last menstrual period: 12/22/2021 Risk Values: Kaley 5 year model risk: 0.9%. NCI Lifetime model risk: 10.7%. Prior Study Comparison: 02/16/2018 Bilateral Diagnostic Mammogram, [facility]. 02/16/2018 Right Diagnostic Ultrasound, [facility]. 07/24/2019 Left Diagnostic Ultrasound, [facility]. Tissue Density: The breast tissue is heterogeneously dense. This may lower the sensitivity of mammography. Findings: Analyzed By CAD. Benign-appearing bilateral axillary lymph nodes are redemonstrated. One round circumscribed lesion towards the left axilla has benign calcifications similar to prior. No new mass or distortion in either breast. Overall Assessment: Benign, BI-RAD 2 Management: Screening Mammogram of both breasts in 1 year. Manage patient symptoms of bilateral breast pain and soreness on clinical basis. A clinical breast exam by your physician is recommended on an annual basis and results should be correlated with mammographic findings. This exam should not preclude additional follow-up of suspicious palpable abnormalities. Results were given to the patient verbally at the time of exam. Electronically signed and approved by: Callum Lopez M.D.
== END | disposition home or self-care (01) ==
LOC: RADMAMWWP 10:43
PROVIDERS: ATTEND Family Medicine
DX: N64.4 Mastodynia (principal)
CPT/HCPCS: 77062; 77066

== ENCOUNTER 2022-11-06 07:10 | Day surgery (SDC) | payer OTHER ==
[~2022-11-06 07:10] MED LIST: LACTATED RINGERS 1,000 ML IV SCH
[2022-11-06 07:33] VITALS: RESP 16; TEMP 98.2
[2022-11-06 07:40] LABS: Glucose,Whole Blood 105 mg/dL (70-110)
[2022-11-06] MEDS ORDERED: PROPOFOL 10 MG/ML 20 ML VIAL IV ONE (07:40)
--- NOTE | 2022-11-06 07:56 | P.PCN ---
Date of Procedure: 11/06/22 Procedure(s) Performed: BRIEF HISTORY: Patient is a 47-year-old, pleasant, white female as a part of evaluation of long-standing history of GERD and intermittent dysphagia to solids. She is presently on omeprazole 20 mg daily and has occasional breakthrough symptoms, has intermittent dysphagia to solids with certain foods. No choking episodes. PROCEDURE PERFORMED: Esophagogastroduodenoscopy with biopsy. PREOPERATIVE DIAGNOSIS: Long-standing history of GERD and intermittent dysphagia to solids. IV sedation per anesthesia. PROCEDURE: After informed consent was obtained, the patient was brought into the endoscopy unit. IV sedation was administered by Anesthesia under continuous monitoring. Initially the Olympus GIF-140 video endoscope was inserted into the mouth. Esophagus intubated without any difficulty. It was gradually advanced into the stomach and duodenum and carefully examined. The bulb and the second part of the duodenum appeared normal. The scope at this time was withdrawn to the stomach, adequately insufflated with air, and upon careful examination, mucosa of the antrum, had diffuse gastritis and biopsies were done from this area. Because of the body, cardia and the fundus appeared normal. Multiple small gastric polyps noted in the proximal body the stomach which were biopsied. The scope was then withdrawn into the esophagus. The GE junction was located at 39 cm from the incisors. The esophagus appeared normal. There were no erosions or ulcerations seen and the patient tolerated the procedure well. IMPRESSION: 1. Diffuse antral gastritis status post biopsy. 2. Small gastric polyps in the gastric body 3. Normal-appearing esophagus with no evidence of esophagitis or esophageal stricture. RECOMMENDATIONS: The findings of this examination were discussed with the patient as well as a family. She was advised to follow with the biopsy results and continue with omeprazole 20 mg daily and follow antireflux measures..
[2022-11-06 08:17] VITALS: BP 126/83; PULSE 65
== END 2022-11-06 08:57 | disposition home or self-care (01) ==
LOC: ORWHC2ENDO 07:10
PROVIDERS: ATTEND Internal Medicine Gastroenterology
DX: K29.50 Unspecified chronic gastritis without bleeding (principal); K31.7 Polyp of stomach and duodenum; I10 Essential (primary) hypertension; K21.9 Gastro-esophageal reflux disease without esophagitis; E11.9 Type 2 diabetes mellitus without complications; Z88.4 Allergy status to anesthetic agent; Z79.899 Other long term (current) drug therapy
CPT/HCPCS: 81025; 88305; 43239; J2704

== ENCOUNTER → 2022-12-03 | Outpatient (CLI) | payer OTHER ==
--- NOTE | 2022-12-03 14:04 | P.SLEEP ---
History of Present Illness DATE: 12/03/2022 CONSULTATION/NEW PATIENT EVALUATION HISTORY OF PRESENT ILLNESS/SLEEP-WAKE EVALUATION: 47-year-old lady had been ev aluated in the sleep center for possible obstructive sleep apnea hypopnea syndrome. SLEEP SCHEDULE: Usually sleep schedule from 10 PM to 6 AM on weekdays and from 10 PM until 9 AM on weekend. FALLING ASLEEP: Sometimes patient has problems with falling asleep, has TV set in bedroom. DURING SLEEP: Patient snores and wakes up from sleep more than 3 times with occasional nocturia. No history of hypnogogical hallucinations, sleep paralysis, or cataplexy. Positive history of vivid dreams. Awakenings from sleep with terrible headache, grinding teeth, episodes of palpitations and heartburn. Positive history of restless leg symptoms. DURING THE DAY/WAKE STATE: In the morning patient wake up tired, has difficulties to pay attention, has problems with memory and concentration. Positive history of anxiety episodes. [place] sleepiness scale is 11 which indicates sleepiness. Usually patient doesn't take naps. PAST MEDICAL HISTORY: Hypertension, acid reflux, prediabetes, fibromyalgia, sin uses problems. PAST SURGICAL HISTORY: . MEDICATIONS: Metformin 500 mg twice a day, carvedilol 6.25 mg twice a day, famotidine 40 mg once a day. SOCIAL HISTORY: Negative for smoking, alcohol consumption occasional. FAMILY HISTORY: Asthma, sleep apnea, anemia, mental illness. REVIEW OF SYSTEMS: Snoring, multiple awakenings from sleep, sleepiness during the day. No fevers. No double vision. No recent chest pain. No shortness of breath. No abdominal pain. No bleeding episodes. No blood in urine. No seizure episodes. PHYSICAL EXAMINATION: GENERAL: A pleasant patient without any distress. VITAL SIGNS: BP 134/83, HR 59, RR 12, weight 246 pounds, height 5 foot 3.5 inches, body mass index 42.8. HEENT: PERRLA, EOMI. Evaluation of oropharynx showed tongue protrudes midline, low position of soft palate Mallampati 4. NECK: Supple. No JVD. Thyroid is not palpable. 16.5 inches in circumference. LUNGS: Clear to percussion and to auscultation. Good air exchange. No wheezing or rhonchi. HEART: S1, S2 regular. No murmurs, gallops or rubs. ABDOMEN: Soft and nontender. Bowel sounds are present. No organomegaly appreciated. EXTREMITIES: No clubbing or cyanosis. SPECIAL NEEDS NANNY: Awake, alert, and oriented x3. Cranial nerves 2 to 7 intact. There is no fasciculation or atrophy noted. No focal deficits observed. ASSESSMENT: 1. Snoring, multiple awakenings from sleep, extremely low position of soft palate Mallampati 4, wide neck 16.5 inches in circumference, sleepiness [place] Sleepiness Scale increased to 11. Obstructive sleep apnea hypopnea syndrome. 2. Obesity, body mass index 42.8. 3. Hypertension. 4.. PreDiabetes. 5 restless leg symptoms. 6 . History of fibromyalgia. 7. History of sinuses problems. PLAN: 1. Polysomnography for evaluation of patient's breathing during sleep and to check for restless legs and periodic limb movements. 2. CPAP/BiPAP titration if sleep study confirms obstructive sleep apnea- hypopnea syndrome. 3. Preferable position during sleep on the side. 4. No driving if patient feels any sleepiness. Patient is aware of civil and criminal liability for unsafe driving. 5. Sleep hygiene with regular sleep time for at least 7.5-8 hours. 6. Watching and losing weight. Thank you very much for referring this patient for consultation. Sincerely, Cholo Pena MD, PhD, FAASM. Diplomat of [place] [employer], Sleep Medicine Board by [place] [employer] [place] [employer] [facility] [place] Past Medical History Past Medical History: GERD/Reflux, Hypertension Additional Past Medical History / Comment(s): covid + Aug 03 2021. pt states she is "pre diabetic" History of Any Multi-Drug Resistant Organisms: None Reported Past Surgical History: Section Past Anesthesia/Blood Transfusion Reactions: No Reported Reaction Smoking Status: Never smoker - Past Family History Sister(s) Family Medical History: Cancer Additional Family Medical History / Comment(s): thyroid Medications and Allergies Home Medications Medication Instructions Recorded Confirmed Type metFORMIN HCL [Glucophage] 500 mg PO BID 08/06/21 11/06/22 History Omeprazole [PriLOSEC] 20 mg PO DAILY PRN 11/03/22 11/06/22 History carvediloL [Coreg] 6.25 mg PO BID 11/03/22 11/06/22 History Allergies Allergy/AdvReac Type Severity Reaction Status Date / Time lidocaine AdvReac Unknown Uncoded 11/03/22 14:22 Sleep Note - Sleep Note Sleep Note: Temperature: Pulse Rate: Respiratory Rate: Blood Pressure: SpO2: Height: Weight: BMI: Neck Circumference:
== END ==
LOC: SLEEP 13:38
PROVIDERS: ATTEND Internal Medicine
DX: G47.33 Obstructive sleep apnea (adult) (pediatric) (principal); E66.9 Obesity, unspecified; I10 Essential (primary) hypertension; Z68.41 Body mass index [BMI] 40.0-44.9, adult; R73.03 Prediabetes; K21.9 Gastro-esophageal reflux disease without esophagitis; Z88.8 Allergy status to other drugs, medicaments and biological substances; G25.81 Restless legs syndrome; M79.7 Fibromyalgia; J34.2 Deviated nasal septum; Z99.89 Dependence on other enabling machines and devices
CPT/HCPCS: 99211

== ENCOUNTER 2023-01-05 19:29 | Outpatient (CLI) | payer OTHER | END 2023-01-06 23:59 | LOC: 3 N SLEEP 19:29 → EDSTATUS 19:30 → 3 N SLEEP 01-06 05:20 | PROVIDERS: ATTEND Internal Medicine | DX: G47.33 Obstructive sleep apnea (adult) (pediatric) (principal); Z88.6 Allergy status to analgesic agent | CPT/HCPCS: 95810 ==

== ENCOUNTER → 2023-02-18 | Outpatient (CLI) | payer OTHER ==
--- NOTE | 2023-02-18 15:55 | P.PN ---
Subjective DATE: 02/18/2023 FOLLOW UP VISIT. Patient returned to sleep center for follow-up visit to discuss results of sleep study and following plan. I discuss results of sleep studies with patient in details. Diagnostic polysomnogram showed very mild respiratory abnormalities and REM sleep, total apnea hypopnea index was in normal range 4.5. Significant periodic limb movements have been documented, but only with a few amount of micro-arousals. [place] sleepiness scale is 9, which is borderline. MEDICATIONS:1. Metformin 2. Carvedilol 3. Famotidine During physical exam: GENERAL: A pleasant patient without any distress. VITAL SIGNS: BP 137/86, HR 66, RR 14, weight 235, temperature 98.3, oxygen saturation at room air 100%. HEENT: PERRLA, EOMI. NECK: Supple. No JVD. LUNGS: Clear to percussion and to auscultation. Good air exchange. No wheezing or rhonchi. HEART: S1, S2 regular. ABDOMEN: Soft and nontender. EXTREMITIES: No clubbing or cyanosis. DETAILER FURNITURE: Awake, alert, and oriented x3. No focal deficit. Impressions: 1. No significant respiratory abnormalities have been documented during the sleep study. Total apnea hypopnea index 4.5, although several respiratory abnormalities have been documented during REM sleep. 2. Obesity. 3. Significant periodic limb movements have been documented 25.8 times per hour, but only with 1.1 micro-arousals per hour. 4. Hypertension. 5. Restless leg symptoms. 6. History of fibromyalgia. 7. History of sinus problems. Plan: 1. Patient will be started on treatment with Mirapex 0.125 mg 1-2 tablets at bedtime to prevent periodic limb movements. 2. Sleep hygiene with regular time in bed for at least 8 hours. 3. Losing weight 4. Precautions related to driving. No driving if feel any sleepiness. Patient is aware about civil and criminal liability for unsafe driving, promised to follow recommendations. 5. Preferable position during the sleep on the side position and slightly up . 6. Please check iron profile including ferritin level, with level of ferritin less than 50 mcg/mL replacement of iron is indicated. 7. Follow up visit in 4-6 months or earlier if patient has any problems. Thank you very much for allowing me to participate in the management of your patient. Cholo Pena MD, PhD, FAASM. Diplomat of [place] [employer], Sleep Medicine Board by [place] [employer] [facility] [place]
== END ==
LOC: 3 N SLEEP 14:53
PROVIDERS: ATTEND Internal Medicine
DX: G47.33 Obstructive sleep apnea (adult) (pediatric) (principal); E66.9 Obesity, unspecified; G25.81 Restless legs syndrome; G47.61 Periodic limb movement disorder; I10 Essential (primary) hypertension; M79.7 Fibromyalgia; Z99.89 Dependence on other enabling machines and devices
CPT/HCPCS: 99212

== ENCOUNTER → 2023-06-25 | Outpatient (CLI) | payer OTHER ==
--- NOTE | 2023-06-25 07:31 | MM ---
Reason for Exam: Clinical finding. Last mammogram was performed 1 year(s) and 6 month(s) ago. Indicated Problems: Pain of both sides (Focal) for 5 Year(s) : lumps and pain around breasts. Patient History: Menarche at age 14. First Full-Term at age 27. Patient has history of breast feeding. Hormonal Contraceptives, from age 23 until age 25. Risk Values: Kaley 5 year model risk: 0.9%. NCI Lifetime model risk: 10.5%. Prior Study Comparison: 02/16/2018 Bilateral Diagnostic Mammogram, [facility]. 12/31/2021 Bilateral MG 3D diag mammo w/cad [facility]URE[facility], [facility]. Tissue Density: There are scattered fibroglandular densities. Findings: Analyzed By CAD. 1.1 cm lymph node in the left axilla containing some calcifications. Overall size of the lymph node is unchanged. Ultrasound can be performed. Otherwise, no significant change. Overall Assessment: Incomplete: need additional imaging evaluation, BI-RAD 0 Management: Diagnostic Breast Ultrasound of both breasts. Bilateral upper outer quadrants and axilla for pain. Additional left axillary ultrasound for the lymph node containing calcifications. Electronically signed and approved by: Garfield Cano M.D. Radiologist
--- NOTE | 2023-06-25 08:11 | USB ---
Patient History: Menarche at age 14. First Full-Term at age 27. Patient has history of breast feeding. Hormonal Contraceptives, from age 23 until age 25. Risk Values: Kaley 5 year model risk: 0.9%. NCI Lifetime model risk: 10.5%. Technique: Method: Targeted. Prior Study Comparison: 02/16/2018 Bilateral Diagnostic Mammogram, [facility]. 12/31/2021 Bilateral MG 3D diag mammo w/cad [facility], [facility]. Findings: The upper outer quadrant of both breasts, the axilla of both breasts and the retroareolar of both breasts were scanned. Targeted scanning of the bilateral breasts including the upper outer quadrants and axilla. No solid or cystic lesion is seen on either side. On the left, a nonenlarged 8 x 8 x 5 mm lymph node with a uniform cortex measuring 1.5 mm thick show suggestion of faint calcifications likely mammographic correlate. This has a benign appearance. Given increasing calcifications on mammogram, short interval follow-up is recommended. Overall Assessment: Probably benign, BI-RAD 3 Management: Diagnostic Breast Ultrasound of the left breast in 6 months. To ensure stability of the benign-appearing left axillary node which shows some increasing calcifications on mammogram. Further clinical management of patient's bilateral breast pain. A clinical breast exam by your physician is recommended on an annual basis and results should be correlated with mammographic findings. This exam should not preclude additional follow-up of suspicious palpable abnormalities. Results were given to the patient verbally at the time of exam. Electronically signed and approved by: Garfield Cano M.D. Radiologist
== END | disposition home or self-care (01) ==
LOC: RADMAMWWP 06:48
PROVIDERS: ATTEND Family Medicine
DX: R92.323 Mammographic fibroglandular density, bilateral breasts (principal); N63.10 Unspecified lump in the right breast, unspecified quadrant; N63.20 Unspecified lump in the left breast, unspecified quadrant; N64.4 Mastodynia
CPT/HCPCS: 77062; 77066

== ENCOUNTER 2023-09-20 10:33 | Emergency (ER) | payer OTHER ==
[2023-09-20 10:54] VITALS: TEMP 98.3
--- NOTE | 2023-09-20 10:55 | ED ---
General Adult HPI - General Source: patient, RN notes reviewed Mode of arrival: ambulatory Limitations: no limitations <Carol Alicia - Last Filed: 09/20/23 10:46> - General Source: RN notes reviewed, old records reviewed Mode of arrival: ambulatory Limitations: no limitations - History of Present Illness -: days(s) Location: head Radiation: non-radiation Severity scale (1-10): 2 Consistency: intermittent Improves with: none, immobilization Associated Symptoms: denies other symptoms <Mohsen Sun - Last Filed: 09/30/23 01:11> - General Chief complaint: Recheck/Abnormal Lab/Rx Stated complaint: Hypertension - History of Present Illness Initial comments: Quick [id number] female presents to the ED with chief complaint of headache and elevated blood pressure. Patient states that she checked her blood pressure this morning with a reading of 148/100, so she laid down and her blood pressure persisted to be elevated. Patient states that she is on a daily dose of 5 mg amlodipine. Patient states that she has failed treatment with losartan and lisinopril due to them both causing allergic reactions and side effects. States that she has also been experiencing a headache. Patient denies any dizziness, loss or change in vision, shortness of breath, or loss of consciousness. patient endorses palpitations. (Carol Alicia) This is a 48-year-old female to the ER for evaluation of recently noted elevated blood pressure. Patient has also underlying headache currently which is episodic. Patient is having persistent elevated blood pressure despite her hypertensive medications. She has no chest pain or shortness of breath patient has been taking medications as prescribed (Mohsen Sun) - Related Data Home Medications Medication Instructions Recorded Confirmed metFORMIN HCL [Glucophage] 500 mg PO BID 08/06/21 09/17/23 Cetirizine HCl [Zyrtec] 1 tab PO DAILY PRN 09/17/23 Pepcid(Unk) 1 tab PO DAILY PRN 09/17/23 amLODIPine BESYLATE 5 mg PO DAILY 09/17/23 Previous Rx's Medication Instructions Recorded cloNIDine HCL [Catapres] 0.1 mg PO BID PRN #30 tab 09/20/23 hydroCHLOROthiazide [Hydrodiuril] 25 mg PO DAILY #60 tab 09/20/23 Allergies Allergy/AdvReac Type Severity Reaction Status Date / Time MASON Inhibitors Allergy Cough Verified 09/20/23 10:38 losartan Allergy Rash/Hives Verified 09/20/23 10:38 lidocaine AdvReac Unknown Uncoded 09/20/23 10:38 Review of Systems ROS Other: All systems not noted in ROS Statement are negative. <Carol Alicia - Last Filed: 09/20/23 10:46> ROS Other: All systems not noted in ROS Statement are negative. <CorinneMohsen Krissy - Last Filed: 09/30/23 01:11> ROS Statement: Those systems with pertinent positive or pertinent negative responses have been documented in the HPI. Past Medical History Past Medical History: Diabetes Mellitus, GERD/Reflux, Hypertension Additional Past Medical History / Comment(s): . pt states she is "pre diabetic". anemic History of Any Multi-Drug Resistant Organisms: None Reported Past Surgical History: Section Past Anesthesia/Blood Transfusion Reactions: No Reported Reaction Past Psychological History: Depression Smoking Status: Never smoker Past Alcohol Use History: None Reported Past Drug Use History: None Reported - Past Family History Sister(s) Family Medical History: Cancer Additional Family Medical History / Comment(s): thyroid <Carol Alicia - Last Filed: 09/20/23 10:46> General Exam Limitations: no limitations <Carol Alicia - Last Filed: 09/20/23 10:46> General appearance: alert, in no apparent distress, anxious Head exam: Present: atraumatic, normocephalic, normal inspection Eye exam: Present: normal appearance, PERRL, EOMI. Absent: scleral icterus, conjunctival injection, periorbital swelling ENT exam: Present: normal exam, mucous membranes moist Neck exam: Present: normal inspection. Absent: tenderness, meningismus, lymphadenopathy Respiratory exam: Present: normal lung sounds bilaterally. Absent: respiratory distress, wheezes, rales, rhonchi, stridor Cardiovascular Exam: Present: regular rate, normal rhythm, normal heart sounds. Absent: systolic murmur, diastolic murmur, rubs, gallop, clicks GI/Abdominal exam: Present: soft, normal bowel sounds. Absent: distended, tenderness, guarding, rebound, rigid Extremities exam: Present: normal inspection, full ROM, normal capillary refill. Absent: tenderness, pedal edema, joint swelling, calf tenderness Back exam: Present: normal inspection Neurological exam: Present: alert, oriented X3, CN II-XII intact Psychiatric exam: Present: normal affect, normal mood Skin exam: Present: warm, dry, intact, normal color. Absent: rash <Mohsen Sun - Last Filed: 09/30/23 01:11> - General Exam Comments Initial Comments: Visual Physical Exam Vital signs reviewed General: Well-appearing, nontoxic, no acute distress. Head: Normocephalic, atraumatic Eyes: PERRLA, EOMI ENT: Airway patent Chest: Nonlabored breathing Skin: No visual rash, normal skin tone Neuro: Alert and oriented 3 Musculoskeletal: No gross abnormalities (Stieler,Carol) Course <Mohsen Sun - Last Filed: 09/30/23 01:11> Vital Signs 09/20/23 09/20/23 09/20/23 10:36 12:48 13:35 Temperature 98.3 F Pulse Rate 102 H 104 H 85 Respiratory 18 18 16 Rate Blood Pressure 173/99 131/85 120/78 O2 Sat by Pulse 100 99 94 L Oximetry - Reevaluation(s) Reevaluation #1: Medical records reviewed (Mohsen Sun) Reevaluation #2: Patient symptoms unchanged (Mohsen Sun) Reevaluation #3: Patient informed of results and questions answered (Mohsen Sun) Reevaluation #4: Was pt. sent in by a medical professional or institution (, PA, EDUCATION ADVISER, urgent care, hospital, or senior care...) When possible be specific @ -no Did you speak to anyone other than the patient for history (EMS, parent, family, police, friend...)? What history was obtained from this source @ -no Did you review nursing and triage notes (agree or disagree)? Why? @ -agree Are old charts reviewed (outside hosp., previous admission, EMS record, old EKG, old radiological studies, urgent care reports/EKG's, senior care records)? Report findings @ -yes Differential Diagnosis (chest pain, altered mental status, abdominal pain women, abdominal pain men, vaginal bleeding, weakness, fever, dyspnea, syncope, heada jo ann, dizziness, GI bleed, back pain, seizure, CVA, palpatations, mental health, musculoskeletal)? @ -prior EKG interpreted by me (3pts min.). @ -yes X-rays interpreted by me (1pt min.). @ -no CT interpreted by me (1pt min.). @ -no U/S interpreted by me (1pt. min.). @ -no What testing was considered but not performed or refused? (CT, X-rays, U/S, labs)? Why? @ -none What meds were considered but not given or refused? Why? @ -none Did you discuss the management of the patient with other professionals (professionals i.e. DrHunter, PA, EDUCATION ADVISER, lab, RT, psych nurse, social media editor, greenskeeper head, teacher, guest services officer, correctional case records supervisor)? Give summary @ -no Was smoking cessation discussed for >3mins.? @ -no Was critical care preformed (if so, how long)? @ -no Were there social determinants of health that impacted care today? How? (Homelessness, low income, unemployed, alcoholism, drug addiction, trans portation, low edu. Level, literacy, decrease access to med. care, fpc, rehab)? @ -none Was there de-escalation of care discussed even if they declined (Discuss DNR or withdrawal of care, Hospice)? DNR status @ -no What co-morbidities impacted this encounter? (DM, HTN, Smoking, COPD, CAD, Cancer, CVA, ARF, Chemo, Hep., AIDS, mental health diagnosis, sleep apnea, morbid obesity)? @ -none Was patient admitted / discharged? Hospital course, mention meds given and route, prescriptions, significant lab abnormalities, going to OR and other pertinent info. @ - 48 female to ER for evaluation of severely elevated blood pressure with concerning headache. Symptoms are dramatically improved here in the ER patient feels well can be discharged home Discharge Undiagnosed new problem with uncertain prognosis? @ -no Drug Therapy requiring intensive monitoring for toxicity (Heparin, Nitro, Insulin, Cardizem)? @ -no Were any procedures done? @ -no Diagnosis/symptom? @ -Hypertension headache Acute, or Chronic, or Acute on Chronic? @ -Acute Uncomplicated (without systemic symptoms) or Complicated (systemic symptoms)? @ -Complicated Side effects of treatment? @ -no Exacerbation, Progression, or Severe Exacerbation? @ -exacerbation Poses a threat to life or bodily function? How? (Chest pain, USA, SC, pneumonia, PE, COPD, DKA, ARF, appy, cholecystitis, CVA, Diverticulitis, Homicidal, Pascale cidal, threat to staff... and all critical care pts) @ -yes with uncontrolled blood pressure (Mohsen Sun) Reevaluation #5: Differential Headache: Migraine, tension, cluster, carbon monoxide, central venous thrombosis, pension karma temporal arteritis, acute closure glaucoma, intercranial hemorrhage, mastoiditis, sinusitis, head injury, this is not meant to be an all-inclusive list. (Mohsen Sun) EKG Findings - EKG Comments: EKG Findings:: EKG is sinus 86 NV 160 QRS 82 QTc 407 - EKG Results: EKG: interpreted by ERMD <Mohsen Sun - Last Filed: 09/30/23 01:11> Medical Decision Making <Carol Alicia - Last Filed: 09/20/23 10:46> - Lab Data Result diagrams: 09/20/23 12:09 09/20/23 12:09 - EKG Data -: EKG Interpreted by Me <Mohsen Sun - Last Filed: 09/30/23 01:11> - Medical Decision Making I completed the quick note portion of this chart signed Carol Alicia PA-C (Carol Alicia) 48 female to ER for evaluation of severely elevated blood pressure with concern ing headache. Symptoms are dramatically improved here in the ER patient feels well can be discharged home (Mohsen Sun) - Lab Data Lab Results 09/20/23 09/20/23 09/20/23 Range/Units 12:09 12:09 12:09 WBC 8.6 (3.8-10.6) k/uL RBC 4.32 (3.80-5.40) m/uL Hgb 13.3 (11.4-16.0) gm/dL Hct 39.6 (34.0-46.0) % MCV 91.6 (80.0-100.0) fL MCH 30.8 (25.0-35.0) pg MCHC 33.6 (31.0-37.0) g/dL RDW 13.4 (11.5-15.5) % Plt Count 295 (150-450) k/uL MPV 8.6 Neutrophils % 75 % Lymphocytes % 16 % Monocytes % 5 % Eosinophils % 2 % Basophils % 1 % Neutrophils # 6.4 (1.3-7.7) k/uL Lymphocytes # 1.4 (1.0-4.8) k/uL Monocytes # 0.4 (0-1.0) k/uL Eosinophils # 0.2 (0-0.7) k/uL Basophils # 0.1 (0-0.2) k/uL PT 10.6 (10.0-12.5) sec INR 1.0 (<1.2) APTT 23.1 (22.0-30.0) sec Sodium 140 (137-145) mmol/L Potassium 4.1 (3.5-5.1) mmol/L Chloride 110 H (98-107) mmol/L Carbon Dioxide 25 (22-30) mmol/L Anion Gap 5 mmol/L BUN 12 (7-17) mg/dL Creatinine 0.72 (0.52-1.04) mg/dL Est GFR (CKD-EPI)AfAm >90 (>60 ml/min/1.73 sqM) Est GFR (CKD-EPI)NonAf >90 (>60 ml/min/1.73 sqM) Glucose 107 H (74-99) mg/dL Calcium 9.7 (8.4-10.2) mg/dL Magnesium 1.9 (1.6-2.3) mg/dL Total Bilirubin 0.5 (0.2-1.3) mg/dL AST 27 (14-36) U/L ALT 23 (4-34) U/L Alkaline Phosphatase 85 (38-126) U/L Troponin I (0.000-0.034) ng/mL Total Protein 6.8 (6.3-8.2) g/dL Albumin 4.3 (3.5-5.0) g/dL 09/20/23 Range/Units 12:09 WBC (3.8-10.6) k/uL RBC (3.80-5.40) m/uL Hgb (11.4-16.0) gm/dL Hct (34.0-46.0) % MCV (80.0-100.0) fL MCH (25.0-35.0) pg MCHC (31.0-37.0) g/dL RDW (11.5-15.5) % Plt Count (150-450) k/uL MPV Neutrophils % % Lymphocytes % % Monocytes % % Eosinophils % % Basophils % % Neutrophils # (1.3-7.7) k/uL Lymphocytes # (1.0-4.8) k/uL Monocytes # (0-1.0) k/uL Eosinophils # (0-0.7) k/uL Basophils # (0-0.2) k/uL PT (10.0-12.5) sec INR (<1.2) APTT (22.0-30.0) sec Sodium (137-145) mmol/L Potassium (3.5-5.1) mmol/L Chloride (98-107) mmol/L Carbon Dioxide (22-30) mmol/L Anion Gap mmol/L BUN (7-17) mg/dL Creatinine (0.52-1.04) mg/dL Est GFR (CKD-EPI)AfAm (>60 ml/min/1.73 sqM) Est GFR (CKD-EPI)NonAf (>60 ml/min/1.73 sqM) Glucose (74-99) mg/dL Calcium (8.4-10.2) mg/dL Magnesium (1.6-2.3) mg/dL Total Bilirubin (0.2-1.3) mg/dL AST (14-36) U/L ALT (4-34) U/L Alkaline Phosphatase (38-126) U/L Troponin I <0.012 (0.000-0.034) ng/mL Total Protein (6.3-8.2) g/dL Albumin (3.5-5.0) g/dL Disposition <Carol Alicia - Last Filed: 09/20/23 10:46> Is patient prescribed a controlled substance at d/c from ED?: No Time of Disposition: 13:15 <Mohsen Sun - Last Filed: 09/30/23 01:11> Clinical Impression: Hypertension, Headache Disposition: HOME SELF-CARE Condition: Good Prescriptions: cloNIDine HCL [Catapres] 0.1 mg PO BID PRN #30 tab PRN Reason: Hypertension hydroCHLOROthiazide [Hydrodiuril] 25 mg PO DAILY #60 tab Referrals: Symone Jenkins, PAC [REFERRING] - 1-2 days
[2023-09-20 12:25] LABS: Basophils # (A) 0.1 k/uL (0-0.2); Basophils % (A) 1 %; Eosinophils # (A) 0.2 k/uL (0-0.7); Eosinophils % (A) 2 %; HCT 39.6 % (34.0-46.0); HGB 13.3 gm/dL (11.4-16.0); Lymphocytes # (A) 1.4 k/uL (1.0-4.8); Lymphocytes % (A) 16 %; MCH 30.8 pg (25.0-35.0); MCHC 33.6 g/dL (31.0-37.0); MCV 91.6 fL (80.0-100.0); Mean Platelet Volume 8.6; Monocytes # (A) 0.4 k/uL (0-1.0); Monocytes % (A) 5 %; Neutrophils # (A) 6.4 k/uL (1.3-7.7); Neutrophils % (A) 75 %; Platelet Count 295 k/uL (150-450); RBC 4.32 m/uL (3.80-5.40); RDW 13.4 % (11.5-15.5); WBC 8.6 k/uL (3.8-10.6)
[2023-09-20 12:28] LABS: ALT 23 U/L (4-34); AST 27 U/L (14-36); African American GFR (CKD) >90 (>60 ml/min/1.73 sqM); Albumin 4.3 g/dL (3.5-5.0); Alkaline Phosphatase 85 U/L (38-126); Anion Gap 5 mmol/L; Blood Urea Nitrogen 12 mg/dL (7-17); Calcium 9.7 mg/dL (8.4-10.2); Carbon Dioxide 25 mmol/L (22-30); Chloride 110 mmol/L (98-107); Glucose 107 mg/dL (74-99); Magnesium 1.9 mg/dL (1.6-2.3); Non-African American GFR(CKD) >90 (>60 ml/min/1.73 sqM); Potassium 4.1 mmol/L (3.5-5.1); Sodium 140 mmol/L (137-145); Total Bilirubin 0.5 mg/dL (0.2-1.3); Total Protein 6.8 g/dL (6.3-8.2)
[2023-09-20 12:42] LABS: Partial Thromboplastin Time 23.1 sec (22.0-30.0); Prothrombin Time 10.6 sec (10.0-12.5)
[2023-09-20 13:43] VITALS: BP 120/78; PULSE 85; RESP 16
[2023-09-20] MEDS: hydroCHLOROthiazide 25 MG TAB PO STA (13:47)
[2023-09-20] MEDS: cloNIDine HCL 0.1 MG TAB PO STA (13:48)
== END 2023-09-20 13:52 | disposition home or self-care (01) ==
LOC: EC 10:33
DX: I10 Essential (primary) hypertension (principal); R51.9 Headache, unspecified; E11.9 Type 2 diabetes mellitus without complications; Z79.84 Long term (current) use of oral hypoglycemic drugs; Z79.899 Other long term (current) drug therapy; Z88.8 Allergy status to other drugs, medicaments and biological substances; Z86.59 Personal history of other mental and behavioral disorders
CPT/HCPCS: 36415; 80053; 83735; 84484; 85025; 85610; 85730; 93005; 99284

== ENCOUNTER → 2024-01-14 | Outpatient (CLI) | payer OTHER ==
--- NOTE | 2024-01-14 08:14 | USB ---
Reason for Exam: Follow-up at short interval from prior study. Patient History: Menarche at age 14. First Full-Term at age 27. Patient has history of breast feeding. Hormonal Contraceptives, from age 23 until age 25. Risk Values: Kaley 5 year model risk: 0.9%. NCI Lifetime model risk: 10.5%. Technique: Method: Targeted. Prior Study Comparison: 02/16/2018 Bilateral Diagnostic Mammogram, [facility]. 12/31/2021 Bilateral MG 3D diag mammo w/cad [facility], [facility]. 06/25/2023 Bilateral MG 3D diag mammo w/cad [facility], [facility]. Findings: The axilla of the left breast was scanned. Targeted ultrasound left axilla. A 2.0 x 1.7 x 1.0 cm prominent but otherwise benign-appearing lymph node with thin uniform cortex is identified. No suspicious lymphadenopathy has developed in the interval. Overall Assessment: Probably benign, BI-RAD 3 Management: Diagnostic Mammogram of both breasts in 6 months. Total 1 year follow-up left breast and annual exam of the right breast. A clinical breast exam by your physician is recommended on an annual basis and results should be correlated with mammographic findings. This exam should not preclude additional follow-up of suspicious palpable abnormalities. Results were given to the patient verbally at the time of exam. Electronically signed and approved by: Garfield Cano M.D. Radiologist
== END | disposition home or self-care (01) ==
LOC: RADUSWWP 07:51
PROVIDERS: ATTEND Family Medicine
DX: N63.20 Unspecified lump in the left breast, unspecified quadrant (principal); R92.8 Other abnormal and inconclusive findings on diagnostic imaging of breast